=== PATIENT | female | born 1980 | race Caucasian/White ===

== ENCOUNTER 2024-05-08 06:42 | Emergency (ER) | payer BC, SELFPAY ==
[2024-05-08 06:44] VITALS: BP 152/94
[2024-05-08 06:54] VITALS: BMI 31.2
[2024-05-08] MEDS: TETRACAINE 0.5% OPHTHALMIC SOLUTION 1 DROP OPHTH (07:43)
--- NOTE | 2024-05-08 07:46 | ED.SKININJ ---
HPI-Injury
General
Chief Complaint: Eye Problems
Source: patient
Exam Limitations: none
Time Seen by Provider: 05/08/24 07:22
Nursing documentation reviewed up to this point in time: agreed with
History of Present Illness-Injury
Initial Injury comments:
43 yo female states she used a new Almay eye liner last night and about 2 hours later, eyes started to burn and get red. This a.m. woke with swollen, red, burning eyes. Splashed water in face and eyes with no relief. FB sensation right eye. Denies
change in vision. Denies eyeball pain, rather 'irritation and burning.'
Past History
Past History
ED Past Medical History: None
ED Past Surgical History:
Social History
Tobacco: Non-smoker
Alcohol: Occasional
Drug: None
Personal:
Living: with family
Review of Systems
Review of Systems
Allergies reviewed?: Yes
All Other Systems: ROS reviewed and negative except as documented in HPI and ROS
Constitutional: Denies fever
EENT: Reports other (redness, swelling, burning both eyes)
ABD/GI: Denies nausea
Skin: Reports other (eyelids mildly swollen)
Neurological: Reports no symptoms
Phy Exam
Physical Exam
Physical Exam:
PHYSICAL EXAMINATION:
General: no apparent distress, not acutely ill
Neuro: alert and oriented.
Psychiatric: well kept. interactive and cooperative
Musculoskeletal: Moves with ease
Skin: Warm, pink.
Eye Exam
Eye Exam: PERRL, EOMI and globe normal
Able to obtain acuity?: Yes
Right 20/: 30
Left 20/: 20
Both 20/: 16
Refraction?: No
Conjunctival Changes: right: chemosis (with small subconjunctival hemorrhage) and bilateral: watery discharge
Cornea Exam: abrasion: Right (tiny lower cornea)
Eyelid Exam: edematous: Bilateral (mild)
Type of Exam: slit lamp, simple and fluorescein
Cause of eyelid Inflammation: contact dermatitis: Bilateral
Course
Orders/Labs/Results
Orders:
Orders
05/08/24 07:41
Tetracaine HCl [Tetracaine 0.5% Ophthalmic Solution] See Dose Instructions OPHTH ONCE ONE
05/08/24 07:46
Fluorescein Sodium [Ful-Yen] 1 mg .ROUTE .STK-MED ONE
Vital Signs
Initial and Last Documented VS:
Initial Vital Signs
Temp Pulse Resp BP Pulse Ox
98 F 68 20 152/94 100
05/08/24 06:44 05/08/24 06:44 05/08/24 06:44 05/08/24 06:44 05/08/24 06:44
Last Documented Vital Signs
Temp Pulse Resp BP Pulse Ox
98 F 63 18 123/72 100
05/08/24 06:44 05/08/24 07:54 05/08/24 07:54 05/08/24 07:54 05/08/24 07:54
MDM/Problems Addressed
Differential Diagnosis Includes:
contact conjunctivitis, chemical conjunctivitis, FB, corneal abrasion
MDM/Problems Addressed:
43 yo female states she used a new Almay eye liner last night and about 2 hours later, eyes started to burn and get red. This a.m. woke with swollen, red, burning eyes. Splashed water in face and eyes with no relief. FB sensation right eye. Denies
change in vision. Denies eyeball pain, rather 'irritation and burning.'
No FB noted
Tiny corneal abrasion right lower cornea,
Rx for Gentamicin eye drops sent to her pharmacy
*Critical Care Note
Total Time (30-74mins, 75-104mins- exclusive of procedures): Not Applicable
ED Attending Note
-
Portions of this chart may have been created with voice recognition software.� Occasional wrong word or��sound alike� substitutions may have occurred due to the inherent limitations of voice recognition software.
Discharge Plan
Departure
Patient Disposition: Home (Routine Discharge)
Date of Disposition: 05/08/24
Time of Disposition: 07:40
Patient with high blood pressure during this ER visit?: No
Condition: Good
Discharge Problem:
Subconjunctival hemorrhage of right eye, Irritation of both eyes, Right cornea abrasion, Acute chemical conjunctivitis
Instructions: Corneal Abrasion (DC), Conjunctivitis (Noninfectious Pinkeye)
Prescriptions:
New
gentamicin 0.3 % drops
1 drp BOTH EYES Q4H Qty: 5 0RF
No Action
Vitamins Tablet
1 tab PO DAILY
acetaminophen 325 MG tablet
650 mg PO Q4HPRN PRN (Reason: mild pain) 0RF
sennosides-docusate sodium 1 TABLET tablet
1 tab PO DAILYPRN PRN (Reason: constipation) Qty: 30 0RF
ibuprofen 600 MG tablet
600 mg PO Q6HPRN PRN (Reason: cramps) Qty: 60 0RF
Referrals:
Romario Pinon MD [Active] - As needed
Activity Restrictions/Additional Instructions:
As we discussed, I sent a prescription to your [facility] pharmacy for antibiotic eye drops. 1 drop each eye 4 times a day for 5 days.
See the eye doctor if not MUCH BETTER in 3 days or sooner if symptoms worsen.
Cool compress to the eyes may help soothe them
Interventions
Interventions:
*Risk Screen - Suicide Last Done: 05/08/24 06:44
*General Assessment Last Done: 05/08/24 06:59
*Neglect/Abuse Screening Last Done: 05/08/24 06:44
ED- Fall Risk Assessment Last Done: 05/08/24 06:54
*ED COVID-19 Vaccine History Last Done: 05/08/24 06:54
*Nursing Disposition Last Done: 05/08/24 07:54
Discharge Date and Time
Discharge Date/Time: 05/08/24 07:56
Print Language: HEBREW
[2024-05-08 07:47] VITALS: BP 123/72
[2024-05-08 07:54] VITALS: BP 123/72
--- NOTE | 2024-05-08 07:54 | EDRN ---
Reviewed discharge instructions with patient. Verbalized understanding.
== END 2024-05-08 07:56 | disposition home or self-care (01) ==
LOC: EMR 06:42
PROVIDERS: EMERGENCY PHYSICIAN Emergency Medicine; FAMILY PHYSICIAN Family Medicine
DX: H11.33 Conjunctival hemorrhage, bilateral (principal); S05.01XA Injury of conjunctiva and corneal abrasion without foreign body, right eye, initial encounter; H10.219 Acute toxic conjunctivitis, unspecified eye; H57.11 Ocular pain, right eye; X58.XXXA Exposure to other specified factors, initial encounter
CPT/HCPCS: 99282